=== PATIENT | male | born 1965 | race Caucasian/White ===

== ENCOUNTER 2016-04-17 09:29 | Emergency (ER) | payer OTHER ==
[2016-04-17 09:41] VITALS: BP 145/67
--- NOTE | 2016-04-17 09:56 | ER Document Report ---
HPI - HPI Patient complains to provider of: right great toe joint pain Onset: Yesterday Onset/Duration: Gradual Quality of pain: Throbbing Pain Level: 4 Context: 50 yo male with hx gout in the right great toe MTP joint has increased pain despite taking allopurinal and indocin. Unsure of dosing. Doesn't want it to get bad again. No fever. Associated Symptoms: None Exacerbated by: Movement Relieved by: Denies Similar symptoms previously: Yes Recently seen / treated by doctor: No - ROS ROS below otherwise negative: Yes Systems Reviewed and Negative: Yes All other systems reviewed and negative - DERM Skin Color: Normal Past Medical History - General Information source: Patient - Social History Smoking Status: Current Every Day Smoker Chew tobacco use (# tins/day): No Frequency of alcohol use: None Drug Abuse: None Lives with: Family Family History: Reviewed & Not Pertinent Patient has suicidal ideation: No Patient has homicidal ideation: No Renal/ Medical History: Denies: Hx Peritoneal Dialysis Musculoskeltal Medical History: Reports Hx Arthritis, Reports Hx Gout Surgical Hx: Negative Vertical Provider Document - CONSTITUTIONAL Agree With Documented VS: Yes Exam Limitations: No Limitations General Appearance: Mild Distress - INFECTION CONTROL TRAVEL OUTSIDE OF THE [place] IN LAST 30 DAYS: No - HEENT HEENT: Normocephalic - NECK Neck: Supple - RESPIRATORY O2 Sat by Pulse Oximetry: 97 - MUSCULOSKELETAL/EXTREMETIES Musculoskeletal/Extremeties: Tender - warm, not red right great toe MTP join, increased pain with movement - NEURO Level of Consciousness: Awake, Alert Motor/Sensory: No Motor Deficit, No Sensory Deficit - DERM Integumentary: Warm, Dry, No Rash Course - Vital Signs Vital signs: Temp Pulse Resp BP Pulse Ox 97.9 F 73 18 145/67 H 97 04/17/16 09:39 04/17/16 09:39 04/17/16 09:39 04/17/16 09:39 04/17/16 09:39 Discharge - Discharge Clinical Impression: right great MTP joint pain/hx of gout Condition: Good Disposition: HOME, SELF-CARE Instructions: Arthritis ([facility]), Gout ([facility]), Gout Diet ([facility]), Steroid Medication Additional Instructions: stop the indomethosine while taking the prednisone to er if worse see dr. damon today as planned referral to [facility] Please complete the patient satisfaction survey if you get one, and return it.. If you do not receive a survey, then you can go to the [facility] website, [email or web address] and place your comments about your very good care. Thank you very much. It was a pleasure being your medical provider today. Prescriptions: Oxycodone HCl/Acetaminophen [Percocet 5-325 mg Tablet] 1 - 2 tab PO ASDIR PRN # 15 tablet PRN Reason: Prednisone [Deltasone 10 mg Tablet] 10 mg PO ASDIR PRN #21 tablet PRN Reason: Referrals: NATHALIE FRASER MD [ACTIVE STAFF] - Follow up as needed QI BOCANEGRA MD [ACTIVE STAFF] - Follow up as needed
== END 2016-04-17 10:19 | disposition home or self-care (01) ==
LOC: ER 09:29
DX: M79.674 Pain in right toe(s) (principal); F17.200 Nicotine dependence, unspecified, uncomplicated
CPT/HCPCS: 99283

== ENCOUNTER → 2016-04-19 | Outpatient (CLI) | payer OTHER ==
[2016-04-19 12:04] LABS: ANION GAP 12 (5-19); BLOOD UREA NITROGEN 16 mg/dL (7-20); CALCIUM 10.1 mg/dL (8.4-10.2); CARBON DIOXIDE 28 mmol/L (22-30); CHLORIDE 105 mmol/L (98-107); CREATININE RESULT 0.87 mg/dL (0.52-1.25); GLUCOSE 87 mg/dL (75-110); POTASSIUM 4.2 mmol/L (3.6-5.0); SODIUM 144.8 mmol/L (137-145)
== END ==
LOC: CCC 10:50
DX: I10 Essential (primary) hypertension (principal)
CPT/HCPCS: 36415; 80048

== ENCOUNTER → 2016-11-14 | Outpatient (CLI) | payer OTHER ==
--- NOTE | 2016-11-14 15:17 | RADIOLOGY REPORT (SQ) ---
EXAM DESCRIPTION: HIP RIGHT AP/LATERAL COMPLETED DATE/TIME: 11/14/2016 11:02 am REASON FOR STUDY: RT HIP PAIN M25.551 PAIN IN RIGHT HIP COMPARISON: None. NUMBER OF VIEWS: Two views. TECHNIQUE: AP pelvis and additional frog-leg view of the right hip. LIMITATIONS: None. FINDINGS: MINERALIZATION: Normal. RIGHT HIP: No fracture or dislocation. There is slight overgrowth of lateral superior aspect of the acetabulum. There is medial joint space narrowing. There are marginal osteophytes on the femoral he ad. LEFT HIP: There is overgrowth of the acetabulum. There is narrowing of the medial joint space. PUBIS AND ISCHIUM: No fracture. PELVIS: No fracture. SACRUM: No fracture or dislocation. No worrisome bone lesions. LOWER LUMBAR SPINE: No fracture or dislocation. No worrisome bone lesions. No significant disc disea se. SOFT TISSUES: No findings. OTHER: No other significant finding. IMPRESSION: 1. Mild degenerative joint changes in both hips. TECHNICAL DOCUMENTATION: JOB ID: [id number] [employer]- All Rights Reserved
== END ==
LOC: OD 10:48
DX: M25.551 Pain in right hip (principal); M16.0 Bilateral primary osteoarthritis of hip

== ENCOUNTER → 2016-11-14 | Outpatient (CLI) | payer OTHER ==
[2016-11-14 11:05] LABS: ABSOLUTE EOSINOPHILS # (AUTO) 0.1 10^3/uL (0.0-0.6); ABSOLUTE LYMPHOCYTES (AUTO) 2.1 10^3/uL (0.5-4.7); ABSOLUTE MONOCYTES (AUTO) 0.6 10^3/uL (0.1-1.4); ABSOLUTE NEUT (AUTO) 4.9 10^3/uL (1.7-8.2); BASOPHILS % (AUTO) 0.3 % (0-2); EOSINOPHILS % (AUTO) 1.8 % (0-6); HEMATOCRIT 44.6 % (37.9-51.0); HEMOGLOBIN 15.5 g/dL (13.5-17.0); HGB HCT DIFFERENCE 1.9; LYMPHOCYTES % (AUTO) 26.9 % (13-45); MEAN CORPUSCULAR HEMOGLOBIN 28.9 pg (27.0-33.4); MEAN CORPUSCULAR HGB CONC 34.6 g/dL (32.0-36.0); MEAN CORPUSCULAR VOLUME 84 fl (80-97); MONOCYTES % (AUTO) 7.8 % (3-13); RED BLOOD COUNT 5.35 10^6/uL (4.35-5.55); RED CELL DISTRIBUTION WIDTH 14.5 % (11.5-14.0); SEGMENTED NEUTROPHILS % (AUTO) 63.2 % (42-78); WHITE BLOOD COUNT 7.8 10^3/uL (4.0-10.5)
[2016-11-14 11:29] LABS: ALANINE AMINOTRANSFERASE 104 U/L (21-72); ALBUMIN 4.5 g/dL (3.5-5.0); ALKALINE PHOSPHATASE 94 U/L (38-126); ANION GAP 14 (5-19); ASPARTATE AMINO TRANSFERASE 44 U/L (17-59); BILIRUBIN,DIRECT 0.3 mg/dL (0.0-0.4); BILIRUBIN,TOTAL 0.6 mg/dL (0.2-1.3); BLOOD UREA NITROGEN 13 mg/dL (7-20); CARBON DIOXIDE 23 mmol/L (22-30); CHLORIDE 103 mmol/L (98-107); CREATININE RESULT 0.71 mg/dL (0.52-1.25); GLUCOSE 221 mg/dL (75-110); POTASSIUM 4.4 mmol/L (3.6-5.0); SODIUM 139.9 mmol/L (137-145); URIC ACID 5.3 mg/dL (3.5-8.5)
== END ==
LOC: CCC 10:27
DX: I27.0 Primary pulmonary hypertension (principal); M10.00 Idiopathic gout, unspecified site
CPT/HCPCS: 36415; 80053; 84550; 85025

== ENCOUNTER → 2017-01-02 | Outpatient (CLI) | payer OTHER ==
[2017-01-02 12:58] LABS: ABSOLUTE EOSINOPHILS # (AUTO) 0.1 10^3/uL (0.0-0.6); ABSOLUTE LYMPHOCYTES (AUTO) 2.6 10^3/uL (0.5-4.7); ABSOLUTE MONOCYTES (AUTO) 0.9 10^3/uL (0.1-1.4); ABSOLUTE NEUT (AUTO) 4.6 10^3/uL (1.7-8.2); BASOPHILS % (AUTO) 0.4 % (0-2); EOSINOPHILS % (AUTO) 0.7 % (0-6); HEMATOCRIT 43.3 % (37.9-51.0); HEMOGLOBIN 15.2 g/dL (13.5-17.0); HGB HCT DIFFERENCE 2.3; LYMPHOCYTES % (AUTO) 31.6 % (13-45); MEAN CORPUSCULAR HEMOGLOBIN 29.1 pg (27.0-33.4); MEAN CORPUSCULAR HGB CONC 35.1 g/dL (32.0-36.0); MEAN CORPUSCULAR VOLUME 83 fl (80-97); MONOCYTES % (AUTO) 11.4 % (3-13); RED BLOOD COUNT 5.22 10^6/uL (4.35-5.55); RED CELL DISTRIBUTION WIDTH 14.6 % (11.5-14.0); SEGMENTED NEUTROPHILS % (AUTO) 55.9 % (42-78); WHITE BLOOD COUNT 8.3 10^3/uL (4.0-10.5)
[2017-01-02 13:23] LABS: ALANINE AMINOTRANSFERASE 66 U/L (21-72); ALBUMIN 4.4 g/dL (3.5-5.0); ALKALINE PHOSPHATASE 95 U/L (38-126); ANION GAP 12 (5-19); ASPARTATE AMINO TRANSFERASE 27 U/L (17-59); BILIRUBIN,DIRECT 0.4 mg/dL (0.0-0.4); BILIRUBIN,TOTAL 0.7 mg/dL (0.2-1.3); BLOOD UREA NITROGEN 11 mg/dL (7-20); C-REACTIVE PROTEIN 6.2 mg/L (<10.0); CALCIUM 9.9 mg/dL (8.4-10.2); CARBON DIOXIDE 27 mmol/L (22-30); CHLORIDE 106 mmol/L (98-107); GLUCOSE 89 mg/dL (75-110); POTASSIUM 4.6 mmol/L (3.6-5.0); SODIUM 144.7 mmol/L (137-145); TOTAL PROTEIN 6.8 g/dL (6.3-8.2); URIC ACID 5.4 mg/dL (3.5-8.5)
== END ==
LOC: CCC 12:00
DX: M1A.9XX0 Chronic gout, unspecified, without tophus (tophi) (principal); M70.61 Trochanteric bursitis, right hip
CPT/HCPCS: 36415; 80053; 84550; 85025; 85652; 86140

== ENCOUNTER → 2017-05-17 | Outpatient (CLI) | payer OTHER ==
[2017-05-17 09:59] LABS: ALANINE AMINOTRANSFERASE 51 U/L (21-72); ALBUMIN 4.6 g/dL (3.5-5.0); ALKALINE PHOSPHATASE 86 U/L (38-126); ANION GAP 8 (5-19); ASPARTATE AMINO TRANSFERASE 29 U/L (17-59); BILIRUBIN,DIRECT 0.3 mg/dL (0.0-0.4); BILIRUBIN,TOTAL 0.9 mg/dL (0.2-1.3); BLOOD UREA NITROGEN 11 mg/dL (7-20); CALCIUM 9.7 mg/dL (8.4-10.2); CARBON DIOXIDE 30 mmol/L (22-30); CHLORIDE 103 mmol/L (98-107); CHOLESTEROL 144.64 mg/dL (0-200); GLUCOSE 102 mg/dL (75-110); POTASSIUM 4.8 mmol/L (3.6-5.0); SODIUM 141.3 mmol/L (137-145); TOTAL PROTEIN 7.4 g/dL (6.3-8.2); TRIGLYCERIDES 141 mg/dL (<150); URIC ACID 5.2 mg/dL (3.5-8.5)
[2017-05-17 10:10] LABS: DIRECT LDL 98 mg/dL (<100)
== END ==
LOC: CCC 08:35
DX: I10 Essential (primary) hypertension (principal); E78.4 Other hyperlipidemia; Z79.899 Other long term (current) drug therapy
CPT/HCPCS: 36415; 80053; 80061; 83036; 84550

== ENCOUNTER → 2017-05-22 | Outpatient (CLI) | payer OTHER ==
--- NOTE | 2017-05-22 13:52 | RADIOLOGY REPORT (SQ) ---
EXAM DESCRIPTION: CTA CHEST COMPLETED DATE/TIME: 05/22/2017 1:14 pm REASON FOR STUDY: UNEQUAL BP IN ARMS COMPARISON: None. TECHNIQUE: CT scan of the chest performed using helical scanning technique with dynamic intravenous contrast injection. Images reviewed with lung, soft tissue and bone windows. Reconstructed coronal and sagittal MPR images reviewed. Additional 3 dimensional post-processing performed to develop Maximal Intensity Projection images (MS P). All images stored on PACS. All CT scanners at this facility use dose modulation, iterative reconstruction, and/or weight based d osing when appropriate to reduce radiation dose to as low as reasonably achievable (ALARA). [facility]: Dose Right [facility]: CareDose [facility]: Dose Right [facility]: Teradose 4D [facility]: Exavio CONTRAST TYPE AND DOSE: contrast/concentration: Isovue 370.00 mg/ml; Total Contrast Delivered: 75.0 ml; Total Saline Delivered: 75.0 ml RENAL FUNCTION: GFR > 60. RADIATION DOSE: CT Rad equipment meets quality standard of care and radiation dose reduction techniq ues were employed. CTDIvol: 6.6 - 46.3 mGy. DLP: 1195 mGy-cm. . LIMITATIONS: None. FINDINGS: LUNGS AND PLEURA: No masses, infiltrates, pneumothorax. No pleural effusions, calcificati ons. AORTA AND GREAT VESSELS: Normal. HEART: No pericardial effusion. No significant coronary artery calcifications. PULMONARY ARTERIES: No emboli visualized in the main pulmonary arteries or the segmental branches. HILAR AND MEDIASTINAL STRUCTURES: No identified masses or abnormal nodes. HARDWARE: None in the chest. UPPER ABDOMEN: No significant findings. Limited exam. THYROID AND OTHER SOFT TISSUES: No masses. No adenopathy. BONES: No acute or significant finding. 3D MIPS: Confirm above findings. OTHER: No other significant finding. IMPRESSION: NORMAL CTA OF THE CHEST. NO PULMONARY EMBOLI. COMMENT: Quality ID # [id number]: Final reports with documentation of one or more dose reduction techniques (e.g., Automated exposure control, adjustment of the mA and/or kV according to patient size, use of iterative reconstruction technique) TECHNICAL DOCUMENTATION: JOB ID: [id number] [employer]- All Rights Reserved Reading location - IP/workstation name: [facility]
--- NOTE | 2017-05-22 13:53 | RADIOLOGY REPORT (SQ) ---
EXAM DESCRIPTION: CTA CHEST COMPLETE DATE/TIME: 05/18/2017 10:23 am REASON FOR STUDY: UNEQUAL BP IN ARMS; ART BLOCKAGE FINDINGS: Please see combined report for performance of procedure and radiologic supervision and int erpretation. IMPRESSION: Please see combined report for performance of procedure and radiologic supervision and i nterpretation. Reading location - IP/workstation name: [email or web address]
== END ==
LOC: RAD 05-18 09:29
DX: I87.8 Other specified disorders of veins (principal)
CPT/HCPCS: 71275

== ENCOUNTER 2017-07-07 15:29 | Emergency (ER) | payer OTHER ==
[2017-07-07] MEDS ORDERED: ASPIRIN 81 MG TABLET, CHEWABLE PO ONE (15:56)
--- NOTE | 2017-07-07 16:01 | ER Document Report ---
ED Medical Screen (RME) - General Mode of Arrival: Medic Information source: Patient TRAVEL OUTSIDE OF THE U.S. IN LAST 30 DAYS: No <BOBBY DIEGO - Last Filed: 07/07/17 16:02> <OLIVIA ARGUELLES - Last Filed: 07/07/17 20:04> - General Chief Complaint: Shortness Of Breath Stated Complaint: SHORTNESS OF BREATH Time Seen by Provider: 07/07/17 15:45 Notes: 51 y.o male presents to the ED via EMS with continued hiccups since Sunday, , that have since subsided en route. He reports that they have been consistent, making it hard for him to catch his breath and waking him from sleep. He states that when the hiccups do subside, a cough or sneeze will cause him to start hiccupping again. He states that when he was younger he had hiccups that would last for extended periods of time but never this long. Pt states that he is tender to his chest. He denies any nausea, dizziness, fevers, or headaches. He denies any new medications. Pt reports a stress test scheduled for 07/10/17. (BOBBY DIEGO) - Related Data Allergies/Adverse Reactions: lisinopril Allergy (Verified 07/07/17 15:48) Past Medical History - General Information source: Patient - Social History Chew tobacco use (# tins/day): No Frequency of alcohol use: None Drug Abuse: None Renal/ Medical History: Denies: Hx Peritoneal Dialysis Musculoskeltal Medical History: Reports Hx Arthritis, Reports Hx Gout <BOBBY DIEGO - Last Filed: 07/07/17 16:02> Review of Systems - Review of Systems Constitutional: denies: Fever EENT: No symptoms reported Cardiovascular: Chest pain - tenderness to lower chest from hiccups Respiratory: See HPI, Other - hiccups causing difficulty catching breath Gastrointestinal: See HPI. denies: Nausea Genitourinary: No symptoms reported Male Genitourinary: No symptoms reported Musculoskeletal: No symptoms reported Skin: No symptoms reported Hematologic/Lymphatic: No symptoms reported Neurological/Psychological: See HPI - denies dizziness. denies: Headaches -: Yes All other systems reviewed and negative <BOBBY DIEGO - Last Filed: 07/07/17 16:02> Physical Exam <BOBBY DIEGO - Last Filed: 07/07/17 16:02> <OLIVIA ARGUELLES - Last Filed: 07/07/17 20:04> - Vital signs Vitals: Temp Pulse Resp BP Pulse Ox 98.4 F 81 18 124/68 96 07/07/17 15:43 07/07/17 15:43 07/07/17 15:43 07/07/17 15:43 07/07/17 15:43 - Notes Notes: Physical Exam: General: Alert, appears well. HEENT: Normocephalic. Atraumatic. PERRLA. Extraocular movements intact. Neck: Supple. Respiratory: No respiratory distress. Heart: Regular rate and rhythm. Abdominal: Normal Inspection. No distension. Extremities: Moves all four extremities. Neurological: Normal cognition. AAOx4. Normal speech. Psychological: Normal affect. Normal Mood. Skin: Warm. Dry. Normal color. (BOBBY DIEGO) Course - Laboratory Result Diagrams: 07/07/17 16:16 07/07/17 16:16 <OLIVIA ARGUELLES - Last Filed: 07/07/17 20:04> - Vital Signs Vital signs: Temp Pulse Resp BP Pulse Ox 97.8 F 71 16 132/70 H 98 07/07/17 17:57 07/07/17 17:57 07/07/17 17:57 07/07/17 17:57 07/07/17 17:57 - Laboratory Laboratory results interpreted by me: 07/07/17 16:16 WBC 11.0 H RDW 15.0 H Doctor's Discharge <BOBBY DIEGO - Last Filed: 07/07/17 16:02> <OLIVIA ARGUELLES - Last Filed: 07/07/17 20:04> - Discharge Clinical Impression: Hiccup Condition: Good Disposition: HOME, SELF-CARE Prescriptions: Carbamide Peroxide [Debrox 6.5 % Otic Drops 15 ml] 10 drop OT ASDIR PRN #1 bottle PRN Reason: Referrals: BEN LOZOYA MD [Primary Care Provider] - Follow up as needed Scribe Documentation - Scribe Written by Scribe:: Jae Govea 07/07/17 [id number] acting as scribe for :: Ignacio <BOBBY DIEGO - Last Filed: 07/07/17 16:02>
--- NOTE | 2017-07-07 16:29 | RADIOLOGY REPORT (SQ) ---
EXAM DESCRIPTION: CHEST SINGLE VIEW COMPLETED DATE/TIME: 07/07/2017 4:10 pm REASON FOR STUDY: intractable hiccups COMPARISON: None. EXAM PARAMETERS: NUMBER OF VIEWS: One view. TECHNIQUE: Single frontal radiographic view of the chest acquired. RADIATION DOSE: NA LIMITATIONS: None. FINDINGS: LUNGS AND PLEURA: No opacities, masses or pneumothorax. No pleural effusion. MEDIASTINUM AND HILAR STRUCTURES: No masses. Contour normal. HEART AND VASCULAR STRUCTURES: Heart normal in size. Normal vasculature. BONES: No acute findings. HARDWARE: None in the chest. OTHER: No other significant finding. IMPRESSION: NO ACUTE RADIOGRAPHIC FINDING IN THE CHEST. TECHNICAL DOCUMENTATION: JOB ID: [id number] [employer]- All Rights Reserved Reading location - IP/workstation name: [email or web address]
[2017-07-07 16:39] LABS: ABSOLUTE BASOPHILS # (AUTO) 0.1 10^3/uL (0.0-0.2); ABSOLUTE EOSINOPHILS # (AUTO) 0.1 10^3/uL (0.0-0.6); ABSOLUTE LYMPHOCYTES (AUTO) 2.7 10^3/uL (0.5-4.7); BASOPHILS % (AUTO) 0.5 % (0-2); EOSINOPHILS % (AUTO) 1.3 % (0-6); HEMATOCRIT 45.5 % (37.9-51.0); HEMOGLOBIN 15.4 g/dL (13.5-17.0); MEAN CORPUSCULAR HEMOGLOBIN 28.3 pg (27.0-33.4); MEAN CORPUSCULAR HGB CONC 33.8 g/dL (32.0-36.0); MEAN CORPUSCULAR VOLUME 84 fl (80-97); MONOCYTES % (AUTO) 9.2 % (3-13); PLATELET COUNT 156 10^3/uL (150-450); RED BLOOD COUNT 5.43 10^6/uL (4.35-5.55); TOTAL CELLS COUNTED % (AUTO) 100 %
--- NOTE | 2017-07-07 16:51 | ER Document Report ---
ED General - General Mode of Arrival: Medic Information source: Patient TRAVEL OUTSIDE OF THE [place]. IN LAST 30 DAYS: No <MAURI BRUCE - Last Filed: 07/07/17 20:06> <QI HYLTON - Last Filed: 07/16/17 07:42> - General Chief Complaint: Shortness Of Breath Stated Complaint: SHORTNESS OF BREATH Time Seen by Provider: 07/07/17 15:45 Notes: Patient is a 51-year-old male who presents to the emergency department today with complaints of "consistent hiccups for the last 5 days". Patient states that as soon as he got into the ambulance his hiccups stopped. Patient states he has had hiccups throughout his entire life and they have lasted for days on end in the past. Patient states he felt like he had a spasm today after excessive hiccuping which led to shortness of breath. Patient is not short of breath now. Patient denies history of blood thinners, history of PE/DVT, recent travel, cough, dizziness, nausea, or weakness. (MAURI BRUCE) - Related Data Allergies/Adverse Reactions: lisinopril Allergy (Verified 07/07/17 15:48) Past Medical History - General Information source: Patient - Social History Smoking Status: Former Smoker Cigarette use (# per day): No Chew tobacco use (# tins/day): No Frequency of alcohol use: None Drug Abuse: None Lives with: Family Family History: Reviewed & Not Pertinent Patient has suicidal ideation: No Patient has homicidal ideation: No Renal/ Medical History: Denies: Hx Peritoneal Dialysis Musculoskeltal Medical History: Reports Hx Arthritis, Reports Hx Gout Surgical Hx: Negative <MAURI BRUCE - Last Filed: 07/07/17 20:06> Review of Systems - Review of Systems Constitutional: denies: Weakness EENT: No symptoms reported Cardiovascular: denies: Dizziness Respiratory: See HPI, Short of breath - With hiccups. denies: Cough Gastrointestinal: denies: Nausea Genitourinary: No symptoms reported Male Genitourinary: No symptoms reported Musculoskeletal: No symptoms reported Skin: No symptoms reported Hematologic/Lymphatic: No symptoms reported Neurological/Psychological: No symptoms reported -: Yes All other systems reviewed and negative <MAURI BRUCE - Last Filed: 07/07/17 20:06> Physical Exam <MAURI BRUCE - Last Filed: 07/07/17 20:06> <QI HYLTON Nii - Last Filed: 07/16/17 07:42> - Vital signs Vitals: Temp Pulse Resp BP Pulse Ox 98.4 F 81 18 124/68 96 07/07/17 15:43 07/07/17 15:43 07/07/17 15:43 07/07/17 15:43 07/07/17 15:43 - Notes Notes: Physical Exam: General: Alert, appears well. HEENT: Large amounts of hair mixed with cerumen in right external canal. Appears to be a hair stuck on left TM. PERRL. Extraocular movements intact. Oropharynx clear. Neck: Supple. Non-tender. Respiratory: No respiratory distress. Clear and equal breath sounds bilaterally. Cardiovascular: Regular rate and rhythm. 2+ radial pulses bilaterally. Abdominal: Normal Inspection. Non-tender. No distension. Normal Bowel Sounds. Back: Non-tender. No deformity or step off. Extremities: Moves all four extremities. Upper extremities: Normal inspection. Normal ROM. Lower extremities: Normal inspection. No edema. Normal ROM. Neurological: Normal cognition. AAOx4. Normal speech. Psychological: Normal affect. Normal Mood. Skin: Warm. Dry. Normal color. (ARNOLDO BRUCEON) Course - Laboratory Result Diagrams: 07/07/17 16:16 07/07/17 16:16 <MAURI BRUCE - Last Filed: 07/07/17 20:06> - Laboratory Result Diagrams: 07/07/17 16:16 07/07/17 16:16 - Diagnostic Test Radiology reviewed: Image reviewed - NAD - EKG Interpretation by Ri EKG shows normal: Sinus rhythm Rate: Normal Rhythm: NSR <WARNERQI - Last Filed: 07/16/17 07:42> - Re-evaluation Re-evalutation: 07/07/17 17:04 Patient has been having hiccups since Sunday of this week. They resolve spontaneously when EMS picked him up. Patient states that since he was a child he has had episodes of these same type of exacerbations that have lasted several days. On exam patient appears to possibly have small hair attached to left tympanic membrane and has multiple hairs embedded in cerumen in his right external auditory canal. Parent has stress test Sunday of this coming week ordered by his primary care physician. He denies any chest pain but states that they were concerned about unequal blood pressures in his arms. A CTA of his chest was performed last month and showed normal arterial structure with no signs of dissection. Patient is asymptomatic at this time and states that his shortness of breath was due to him having uncontrollable hiccups but he is no longer shortness of breath now that his hiccups stopped. Due to wide range differential hiccups patient is being screened at this time. CT head and troponin in process. 07/07/17 17:27 CT head shows no acute findings. Patient symptoms started since Sunday with normal CT head is likely this is due to cerebrovascular event. Troponin EKG shows no concerning findings as well as negative d-dimer. Patient also had normal CT of chest later last month. Patient also has history of having these long episodes of hiccuping since he was a child. Patient ears were cleaned by nursing staff. Patient be discharged at this time with return precautions. I discussed with him purchasing a Debrox and prescribed prescription so he can use monthly. (QI HYLTON) - Vital Signs Vital signs: Temp Pulse Resp BP Pulse Ox 97.8 F 71 16 132/70 H 98 07/07/17 17:57 07/07/17 17:57 07/07/17 17:57 07/07/17 17:57 07/07/17 17:57 - Laboratory Laboratory results interpreted by me: 07/07/17 16:16 WBC 11.0 H RDW 15.0 H Discharge <MAURI BRUCE - Last Filed: 07/07/17 20:06> <QI HYLTON - Last Filed: 07/16/17 07:42> - Discharge Clinical Impression: Hiccup Condition: Good Disposition: HOME, SELF-CARE Prescriptions: Carbamide Peroxide [Debrox 6.5 % Otic Drops 15 ml] 10 drop OT ASDIR PRN #1 bottle PRN Reason: Referrals: BEN LOZOYA MD [Primary Care Provider] - Follow up as needed Scribe Attestation: 07/16/17 07:42 I personally performed the services described in the documentation, reviewed and edited the documentation which was dictated to the scribe in my presence, and it accurately records my words and actions. (QI HYLTON) Scribe Documentation - Scribe Written by Scribe:: Jae Reich, 07/07/2017 1932 acting as scribe for :: Long <MAURI BRUCE - Last Filed: 07/07/17 20:06>
[2017-07-07 17:01] LABS: ALANINE AMINOTRANSFERASE 50 U/L (21-72); ALBUMIN 4.7 g/dL (3.5-5.0); ALKALINE PHOSPHATASE 81 U/L (38-126); ANION GAP 13 (5-19); ASPARTATE AMINO TRANSFERASE 27 U/L (17-59); BILIRUBIN,DIRECT 0.3 mg/dL (0.0-0.4); BILIRUBIN,TOTAL 0.4 mg/dL (0.2-1.3); BLOOD UREA NITROGEN 17 mg/dL (7-20); CALCIUM 9.9 mg/dL (8.4-10.2); CARBON DIOXIDE 28 mmol/L (22-30); CHLORIDE 103 mmol/L (98-107); CREATINE KINASE 111 U/L (55-170); GLUCOSE 97 mg/dL (75-110); POTASSIUM 4.1 mmol/L (3.6-5.0); SODIUM 144.3 mmol/L (137-145); TOTAL PROTEIN 7.1 g/dL (6.3-8.2)
[2017-07-07] MEDS ORDERED: CARBAMIDE PEROXIDE 6.5% OTIC SOLN 15 ML AD PRN (17:03)
[2017-07-07] MEDS ORDERED: DOCUSATE SODIUM 100 MG CAPSULE BTH_EAR ONE (17:09)
[2017-07-07 17:13] LABS: CREATINE KINASE MB 0.66 ng/mL (<4.55); TROPONIN I < 0.012 ng/mL
--- NOTE | 2017-07-07 17:25 | RADIOLOGY REPORT (SQ) ---
EXAM DESCRIPTION: CT HEAD WITHOUT COMPLETED DATE/TIME: 07/07/2017 5:17 pm REASON FOR STUDY: intractable hiccups COMPARISON: None. TECHNIQUE: Axial images acquired through the brain without intravenous contrast. Images reviewed wi th bone, brain and subdural windows. Additional sagittal and coronal reconstructions were generated. Images stored on PACS. All CT scanners at this facility use dose modulation, iterative reconstruction, and/or weight based d osing when appropriate to reduce radiation dose to as low as reasonably achievable (ALARA). [facility]: Dose Right [facility]: CareDose [facility]: Dose Right [facility]: Teradose 4D [facility]: Smart Cellworks RADIATION DOSE: CT Rad equipment meets quality standard of care and radiation dose reduction techniq ues were employed. CTDIvol: 53.2 mGy. DLP: 1070 mGy-cm. mGy. LIMITATIONS: None. FINDINGS: VENTRICLES: Normal size and contour. CEREBRUM: No masses. No hemorrhage. No midline shift. No evidence for acute infarction. Normal gra y/white matter differentiation. No areas of low density in the white matter. CEREBELLUM: No masses. No hemorrhage. No alteration of density. No evidence for acute infarction. EXTRAAXIAL SPACES: No fluid collections. No masses. ORBITS AND GLOBE: No intra- or extraconal masses. Normal contour of globe without masses. CALVARIUM: No fracture. PARANASAL SINUSES: Mild patchy ethmoid sinus disease. No fluid levels. SOFT TISSUES: No mass or hematoma. OTHER: No other significant finding. IMPRESSION: Mild chronic paranasal sinus disease suggested. Otherwise unremarkable CT brain without contrast. EVIDENCE OF ACUTE STROKE: NO. COMMENT: Quality ID # [id number]: Final reports with documentation of one or more dose reduction techniques (e.g., Automated exposure control, adjustment of the mA and/or kV according to patient size, use of iterative reconstruction technique) TECHNICAL DOCUMENTATION: JOB ID: [id number] [employer]- All Rights Reserved Reading location - IP/workstation name: [email or web address]
[2017-07-07 17:58] VITALS: BP 132/70
--- NOTE | 2017-07-08 09:44 | EKG REPORT ---
SEVERITY:- ABNORMAL ECG - SINUS RHYTHM NONSPECIFIC IVCD WITH LAD LEFT VENTRICULAR HYPERTROPHY : Confirmed by: Farhat Maldonado 08-Jul-2017 09:43:50
== END 2017-07-07 17:58 | disposition home or self-care (01) ==
LOC: ER 15:29
DX: R06.6 Hiccough (principal); R06.02 Shortness of breath; Z87.891 Personal history of nicotine dependence
CPT/HCPCS: 36415; 70450; 71045; 80053; 82550; 82553; 83690; 83735; 83880; 84484; 85025; 85379; 93005; 93010; 99285; J3490

== ENCOUNTER → 2017-07-19 | Outpatient (CLI) | payer OTHER ==
[~2017-07-19] MED LIST: AMINOPHYLLINE INJ/PF 250 MG/10 ML SDV IV ONE; REGADENOSON INJ 0.4 MG/5 ML DISP.SYRIN IV ONE
--- NOTE | 2017-07-20 09:16 | DRAGON STRESS TEST REPORT ---
INTRAVENOUS LEXISCAN CARDIOLITE STRESS TEST USING SINGLE PHOTON EMMISION COMPUTERIZED TOMOGRAPHIC. DATE OF PROCEDURE: July 19, 2017, INDICATION : Fatigue, other specified symptoms and signs involving circulatory and respiratory system CARDIAC RISK FACTORS: Diabetes, hypertension, dyslipidemia RESTING EKG: Sinus rhythm, left axis deviation, no baseline ST-T wave changes STRESS EKG: No significant ST segment changes noted with LexiScan bolus REASON FOR TERMINATION: Protocol. PROCEDURE REPORT: Baseline heart rate 73 beats per minute with blood pressure of 132/84. Patient had no significant complaints. Patient was bolused with Lexiscan 0.4 mg intravenously followed by saline bolus. Heart rate at 2 minutes post bolus 88 with a blood pressure of 166/80. 3 minutes post bolus heart rate 83 with blood pressure of 150/79. No significant EKG changes were noted. Patient had no significant complaints during the procedure or postprocedure. Patient injected with Aminophyllin 75 mg at 3 minutes or later after Lexiscan bolus. CONCLUSIONS: Normal EKG and hemodynamic response to IV LexiScan. NUCLEAR DATA: At rest the patient was given 15.48 millicuries of technetium 99 sestamibi injected intravenously. As per protocol rest gated SPECT images were obtained. On day of stress test, the patient was given intravenous LexiScan at a dose of 0.4 mg in 5 mL intravenously, followed by flush with normal saline. Subsequently the stress dose of 46.6 millicuries of technetium 99 sestamibi was injected intravenously. As per protocol stress gated images were obtained. NUCLEAR INTERPRETATION: Both raw and processed data were used for interpretation. Visual, qualitative, computer-generated quantitative data was used. There was good myocardial uptake of technetium compound. Motion artifact and soft tissue attenuations were noted. Increased visceral uptake was noted. Increased diaphragmatic attenuation artifact was noted. Moderate inferior wall fixed defect noted. No definitive areas of transient perfusion defect noted.. EKG gated imaging showed LV EF at 52 %, rest and stress gated EF similar visually. T. I D. ratio was 1.08. Lung heart ratio noted to be within normal limits 0.39. No significant extracardiac and abnormal radiotracer activities were noted. RV free wall uptake was noted to be WNL. IMPRESSION: Also refer to comments under nuclear interpretation. Also test results needs to be interpreted in the context of pretest probability. 1. No definitive areas of transient perfusion defect noted. 2. Moderate inferior wall fixed defect noted suggestive of moderate scar. Study was technically difficult as there was significant diaphragmatic attenuation artifact. Clinical correlation is requested. 3. EKG gated imaging shows left ventricular ejection fraction of approx. 52 %. Mild mid inferior wall hypokinesia noted. 4. Clinical correlation requested as occasionally single vessel disease or balanced ischemia could be missed. In approximately 10% of the cases Lexiscan may not cause adequate vasodilatory stress. RECOMMENDATIONS: Aggressive risk factor modification and medical management. Further evaluation may be needed if continued symptoms or other high risk indicators are noted on clinical evaluation. Close cardiology follow-up is also recommended. Clinical correlation with echocardiogram derived ejection fraction. Inability to exercise by itself can lead to increased cardiovascular event risks. Consider cardiology consultation and or follow-up if clinically indicated. 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 CLAIR
== END ==
LOC: RAD 06:40
DX: R53.82 Chronic fatigue, unspecified (principal); R09.89 Other specified symptoms and signs involving the circulatory and respiratory systems; I10 Essential (primary) hypertension; E11.9 Type 2 diabetes mellitus without complications; E78.5 Hyperlipidemia, unspecified
CPT/HCPCS: 93017; 78452; A9500; J2785; J0280; Q9969

== ENCOUNTER → 2017-09-05 | Outpatient (CLI) | payer OTHER ==
[2017-09-05 14:25] LABS: ANION GAP 16 (5-19); BLOOD UREA NITROGEN 10 mg/dL (7-20); CALCIUM 9.7 mg/dL (8.4-10.2); CARBON DIOXIDE 25 mmol/L (22-30); CHLORIDE 106 mmol/L (98-107); GLUCOSE 89 mg/dL (75-110); POTASSIUM 4.3 mmol/L (3.6-5.0); SODIUM 147.1 mmol/L (137-145)
== END ==
LOC: CCC 12:50
DX: I10 Essential (primary) hypertension (principal); R73.03 Prediabetes
CPT/HCPCS: 36415; 80048; 83036